=== PATIENT | female | born 1945 | race Hispanic/Latino ===

== ENCOUNTER 2017-11-04 11:55 | Emergency (ER) | payer MEDICARE, BC ==
[2017-11-04 12:01] VITALS: BMI 29.1
[2017-11-04 12:13] VITALS: RESP 18
[2017-11-04 13:23] LABS: BASO # 0.06 K/mm3 (0.0-2.0); BASO % 1.1 % (0.0-3.0); EOS # 0.1 (0.0-0.7); EOS % 2.5 % (1.5-5.0); GRAN # 2.03 (1.4-6.5); HEMOGLOBIN 14.2 g/dL (12.0-16.0); LYMPH # 2.7 (1.2-3.4); LYMPH % 49.6 % (22.0-35.0); MEAN CELL VOLUME 86.3 fl (80.0-105.0); MEAN CORPUSCULAR HEMOGLOBIN 29.9 pg (25.0-35.0); MEAN CORPUSCULAR HGB CONC 34.6 g/dl (31.0-37.0); MEAN PLATELET VOLUME 9.7 fl (7.0-11.0); MONO # 0.5 (0.1-0.6); MONO % 9.8 % (1.0-6.0); RBC 4.75 10^6/uL (3.5-6.1); RED CELL DISTRIBUTION WIDTH 12.6 % (11.5-14.5); WHITE BLOOD COUNT 5.5 10^3/ul (4.5-11.0)
[2017-11-04 13:35] LABS: ALB/GLOB RATIO 1.3 (1.1-1.8); ALT/SGPT 25 U/L (7-56); AST/SGOT 21 U/L (14-36); BLOOD UREA NITROGEN 16 mg/dL (7-21); CALCIUM 9.9 mg/dL (8.4-10.5); GFR AFRICAN-AMERICAN > 60; GFR NON-AFRICAN AMERICAN > 60
[2017-11-04 13:42] LABS: INR 1.05 (0.93-1.08); PROTHROMBIN TIME 12.1 SECONDS (9.4-12.5)
[2017-11-04 13:45] LABS: TROPONIN I < 0.01 ng/mL
--- NOTE | 2017-11-04 14:07 | ED PDOC ---
Arrival/HPI - General Chief Complaint: Palpitations Time Seen by Provider: 11/04/17 12:00 Historian: Patient - History of Present Illness Narrative History of Present Illness (Text): 11/04/17 14:10 A 72 year old female presents to the emergency department complaining of palpitations. Patient reports chronic palpations for a month, lasting 5-10 seconds, however, today palpitations lasting about an hour. Reports she was taking her pulse and felt heart rate was irregular. Notes palpitations at rest or with movement. Patient reports she called cargo tank mechanic and PMD who advised patient to come to the emergency department for evaluation. Notes her station worker recently removed her medications. Patient denies any dizziness or any other complaints at this time. Reports palpitations currently resolved. Railways Assistant: Dr. Londono Diabetes Territory Manager: Dr. Hawk PMD: Dr. Navarro Symptom Onset: Sudden Symptom Course: Unchanged Activities at Onset: Rest Context: Home Past Medical History - Provider Review Nursing Documentation Reviewed: Yes - Cardiac Hx Cardiac Disorders: Yes Hx Hypertension: Yes - Pulmonary Hx Asthma: Yes - Psychiatric Hx Depression: No Hx Emotional Abuse: No Hx Physical Abuse: No Hx Substance Use: No - Surgical History Hx Cholecystectomy: Yes Hx Tonsillectomy: Yes - Anesthesia Hx Anesthesia: No - Suicidal Assessment Feels Threatened In Home Enviroment: No Family/Social History - Physician Review Nursing Documentation Reviewed: Yes Family/Social History: No Known Family HX Smoking Status: Current Some Days Smoker Hx Alcohol Use: No Hx Substance Use: No Hx Substance Use Treatment: No Allergies/Home Meds Allergies/Adverse Reactions: Allergies shellfish derived Allergy (Verified 11/04/17 12:56) ITCHING Home Medications: Home Meds Medication Instructions Recorded Confirmed Alprazolam [Xanax] 0.25 mg PO DAILY 11/04/17 11/04/17 Alprazolam [Xanax] 0.5 mg pe PO DAILY 11/04/17 11/04/17 Aspirin [Ecotrin] 81 mg PO DAILY 11/04/17 11/04/17 Cholecalciferol [Vitamin D 1000 IU] 1 tab PO DAILY 11/04/17 11/04/17 Levothyroxine [Synthroid] 75 mcg PO DAILY 11/04/17 11/04/17 Lisinopril [Zestril] 20 mg PO DAILY 11/04/17 11/04/17 Metoprolol Succinate [Toprol XL] 25 mg PO BID 11/04/17 11/04/17 Montelukast [Singulair] 10 mg PO DAILY 11/04/17 11/04/17 Pilgrim-3 Fatty Acids/Fish Oil 1 cap PO DAILY 11/04/17 11/04/17 [Pilgrim-3 1,000 mg Softgel] Review of Systems - Review of Systems Constitutional: absent: Fatigue, Fevers Eyes: absent: Vision Changes Respiratory: absent: SOB, Cough Cardiovascular: Palpitations. absent: Chest Pain, Calf Pain, MASC[place] Gastrointestinal: absent: Constipation Genitourinary Female: absent: Dysuria Musculoskeletal: absent: Back Pain Neurological: absent: Dizziness, Focal Weakness Endocrine: absent: Polydipsia Hemo/Lymphatic: absent: Easy Bleeding Psychiatric: absent: Depression Physical Exam - Physical Exam Narrative Physical Exam (Text): 11/04/17 14:07 Head: Atraumatic. Normocephalic. Eyes: PERRL. EOMI. Conjunctivae are not pale. ENT: Mucous membranes are moist and intact. Oropharynx is clear and symmetric. Neck: Supple. Full ROM. No JVD. No lymphadenopathy. No thyromegaly. Cardiovascular: Regular rate. Regular rhythm. No murmurs, rubs, or gallops. Distal pulses are 2+ and symmetric. Pulmonary/Chest: No evidence of respiratory distress. Clear to auscultation bilaterally. No wheezing, rales or rhonchi. Abdominal: Soft and non-distended. There is no tenderness. No rebound, guarding, or rigidity. No organomegaly. Good bowel sounds. Back: No CVA tenderness. Extremities: No edema. No cyanosis. No clubbing. Full range of motion in all extremities. No calf tenderness. Skin: Skin is warm and dry. No petechiae. No purpura. Neurological: Alert, awake, and oriented to person, place, time, and situation. Normal speech. Motor and sensory intact. Psychiatric: Good eye contact. Normal interaction, affect, and behavior. 11/04/17 23:23 Vital Signs Reviewed: Yes Vital Signs Temp Pulse Resp BP Pulse Ox 11/04/17 14:00 98 F 64 18 124/71 98 11/04/17 12:08 98.2 F 68 18 146/78 99 Temperature: Afebrile Blood Pressure: Normal Pulse: Regular Respiratory Rate: Normal Appearance: Positive for: Well-Appearing, Non-Toxic, Comfortable Pain Distress: None Mental Status: Positive for: Alert and Oriented X 3 Medical Decision Making ED Course and Treatment: 11/04/17 14:01 Impression: A 72 year old female with palpitations. Differential Diagnosis included but are not limited to: SVT vs. Atrial fibrillation vs. general palpitations Plan: -- EKG -- chest xray -- labs -- Reassess and disposition Progress Notes: Patient is currently asymptomatic. Sinus rhythm on monitor. Will monitor patient in the emergency department and ordered basic labs. 11/04/17 14:25 Chest xray: Creator : Oswaldo Otero MD IMPRESSION: No active disease. 11/04/17 23:24 Patient has had no further episodes of palpitations after several hours of monitoring in ED. No arrhythmias noted on monitor. Cannot exclude paroxysmal rhythm, although none noted while in ED. Case d/w her cargo tank mechanic Dr. Blackmon. Patient taking beta kay. Will d/c with follow-up with cargo tank mechanic. She is asymptomatic with no chest pain or sob or hypoxia. - Lab Interpretations Lab Results: 11/04/17 13:00 11/04/17 13:00 Lab Results 11/04/17 13:00: Sodium 142, Potassium 4.2, Chloride 107, Carbon Dioxide 25, Anion Gap 14, BUN 16, Creatinine 0.9, Est GFR ( Amer) > 60, Est GFR (Non- Af Amer) > 60, Random Glucose 99, Calcium 9.9, Total Bilirubin 0.4, AST 21, ALT 25, Alkaline Phosphatase 49, Lactate Dehydrogenase 377, Total Creatine Kinase 43 , Troponin I < 0.01, Total Protein 7.0, Albumin 4.0, Globulin 3.0, Albumin/ Globulin Ratio 1.3 11/04/17 13:00: PT 12.1, INR 1.05, APTT 28.0 11/04/17 13:00: WBC 5.5, RBC 4.75, Hgb 14.2, Hct 41.0, MCV 86.3, MCH 29.9, MCHC 34.6, RDW 12.6, Plt Count 200, MPV 9.7, Gran % 37.0 L, Lymph % (Auto) 49.6 H, [place] % (Auto) 9.8 H, Eos % (Auto) 2.5, Baso % (Auto) 1.1, Gran # 2.03, Lymph # ( Auto) 2.7, [place] # (Auto) 0.5, Eos # (Auto) 0.1, Baso # (Auto) 0.06 I have reviewed the lab results: Yes - RAD Interpretation Radiology Orders: 11/04/17 12:57 CHEST PORTABLE [RAD] Stat - EKG Interpretation Interpreted by ED Physician: Yes Type: 12 lead EKG - Scribe Statement The provider has reviewed the documentation as recorded by the Scribe Tamy Gallegos Provider Scribe Attestation: All medical record entries made by the Scribe were at my direction and personally dictated by me. I have reviewed the chart and agree that the record accurately reflects my personal performance of the history, physical exam, medical decision making, and the department course for this patient. I have also personally directed, reviewed, and agree with the discharge instructions and disposition. Disposition/Present on Arrival - Present on Arrival Any Indicators Present on Arrival: No History of DVT/PE: No History of Uncontrolled Diabetes: No Urinary Catheter: No History of Decub. Ulcer: No History Surgical Site Infection Following: None - Disposition Have Diagnosis and Disposition been Completed?: Yes Diagnosis: Palpitations Disposition: HOME/ ROUTINE Disposition Time: 14:00 Patient Plan: Discharge Condition: GOOD Discharge Instructions (ExitCare): Palpitations (ED) Additional Instructions: For any headaches, any chest pain or dizziness, any return of palpitations that are persistent, any shortness of breath, any nausea or vomiting, any numbness or tingling, get rechecked. Continue your Metoprolol. Follow-up with Dr. Hawk next week, return to ER immediately for any return of persistence of ANY symptoms. Referrals: Alberto Navarro MD [Primary Care Provider] - Follow up with primary Neil Hawk MD [Staff Provider] - Follow up with primary Forms: [employer] ([place])
[2017-11-04 14:23] VITALS: BP 124/71; PULSE 64; TEMP 98; O2SAT 98
--- NOTE | 2017-11-04 14:24 | RAD ---
HISTORY: palpitations COMPARISON: Chest radiograph dated 11/17/2015. FINDINGS: LUNGS: No active pulmonary disease. PLEURA: No significant pleural effusion identified, no pneumothorax apparent. CARDIOVASCULAR: Atherosclerotic aortic calcifications. Cardiomediastinal silhouette within normal limits. OSSEOUS STRUCTURES: Unchanged. VISUALIZED UPPER ABDOMEN: Right upper quadrant surgical clips. OTHER FINDINGS: None. IMPRESSION: No active disease.
--- NOTE | 2017-11-04 23:31 | CARD ---
APPROVED REPORT EKG Measurement Heart [id number] <Conclusion> Normal sinus rhythm Normal ECG
== END 2017-11-04 14:20 | disposition home or self-care (01) ==
LOC: ED 11:55
DX: R00.2 Palpitations (principal); I10 Essential (primary) hypertension; F17.210 Nicotine dependence, cigarettes, uncomplicated

== ENCOUNTER 2019-02-12 13:37 | Outpatient (CLI) | payer MEDICARE | END 2019-02-12 13:38 | disposition home or self-care (01) | LOC: CARDIO 13:38 ==